=== PATIENT | male | born 1980 | race Caucasian/White ===

== ENCOUNTER 2016-09-19 05:07 | Emergency (ER) | payer MEDICAID ==
[~2016-09-19] VITALS: Ht 157.5 cm; Wt 74.5 kg
[2016-09-19 05:17] VITALS: Ht 157.5 cm; Wt 74.5 kg
[2016-09-19] MEDS ORDERED: ONDANSETRON (ODT) 4 MG TAB ODT STA (06:01)
--- NOTE | 2016-09-19 06:09 | ERD ---
ER Documentation Chief Complaint Date/Time DATE: 09/19/16 TIME: 06:07 Chief Complaint AP and Bilateral flank pain started at 1800 yesterday. denies pain in urine HPI This is a 36-year-old male who presents to the emergency department today complaining of abdominal pain that started last night. States the pain goes around to his back.. Patient states he has had some vomiting as well as some diarrhea. States he took Motrin for the pain. Denies any dysuria.Denies any fevers or chills. ROS All systems reviewed and are negative except as per history of present illness. Medications Home Meds Active Scripts Loperamide Hcl* (Imodium*) 2 Mg Capsule, 2 MG PO .AFTER EA LOOSE BM Y for DIARRHEA, #10 TAB Prov:GURINDER TRIMBLE PA-C 09/19/16 Hydrocodone/Acetaminophen ([place] 5-325 Tablet) 1 Each Tablet, 1 TAB PO Q6H Y for PAIN, #10 TAB Prov:GURINDER TRIMBLE PA-C 09/19/16 Famotidine* (Pepcid*) 20 Mg Tablet, 20 MG PO BID for 14 Days, TAB Prov:GURINDER TRIMBLE PA-C 09/19/16 Ondansetron Hcl* (Zofran*) 4 Mg Tablet, 4 MG PO Q6H for NAUSEA AND/OR VOMITING, #30 TAB Prov:GURINDER TRIMBLE PA-C 09/19/16 Allergies Allergies: Coded Allergies: No Known Allergy (Unverified , 09/19/16) PMhx/Soc Medical and Surgical Hx: pt denies Medical Hx, pt denies Surgical Hx Hx Psychiatric Problems: No Hx Miscellaneous Medical Probl: No Hx Alcohol Use: No Hx Substance Use: No Hx Tobacco Use: No Smoking Status: Never smoker Physical Exam Vitals Vital Signs Date Time Temp Pulse Resp B/P Pulse Ox O2 Delivery O2 Flow Rate FiO2 09/19/16 05:17 98.1 82 20 131/84 97 Physical Exam Const: NAD Head: Atraumatic Eyes: Normal Conjunctiva ENT: Normal External Ears, Nose and Mouth. Neck: Full range of motion..~ No meningismus. Resp: Clear to auscultation bilaterally Cardio: Regular rate and rhythm, no murmurs Abd: Soft, epigastric and right upper quadrant tenderness non distended. Normal bowel sounds. No right lower quadrant pain. No left lower quadrant pain. No tenderness McBurney's. Skin: No petechiae or rashes Back: No midline or flank tenderness no CVA tenderness Ext: No cyanosis, or edema Neur: Awake and alert Psych: Normal Mood and Affect Result Diagram: 09/19/16 0610 09/19/16 0610 Results 24 hrs Laboratory Tests Test 09/19/16 06:10 White Blood Count 10.310^3/ul Red Blood Count 5.7210^6/ul Hemoglobin 17.2g/dl Hematocrit 50.3% Mean Corpuscular Volume 87.9fl Mean Corpuscular Hemoglobin 30.1pg Mean Corpuscular Hemoglobin Concent 34.2g/dl Red Cell Distribution Width 13.3% Platelet Count 51401^3/UL Mean Platelet Volume 9.4fl Neutrophils % 79.2% Lymphocytes % 11.4% Monocytes % 5.2% Eosinophils % 3.8% Basophils % 0.1% Nucleated Red Blood Cells % 0.0/100WBC Neutrophils # 8.210^3/ul Lymphocytes # 1.210^3/ul Monocytes # 0.510^3/ul Eosinophils # 0.410^3/ul Basophils # 0.010^3/ul Nucleated Red Blood Cells # 0.010^3/ul Urine Color YELLOW Urine Clarity HAZY Urine pH 6.0 Urine Specific Mallory >=1.030 Urine Ketones NEGATIVE Urine Nitrite NEGATIVE Urine Bilirubin NEGATIVE Urine Urobilinogen 0.2 E.U./dL Urine Leukocyte Esterase NEGATIVE Urine Microscopic RBC 0-2/HPF Urine Microscopic WBC 0-2/HPF Urine Epithelial Cells FEW Urine Amorphous Urates FEW Urine Bacteria FEW Urine Mucus MODERATE Urine Hemoglobin TRACE Urine Glucose NEGATIVE% Urine Total Protein TRACE Sodium Level 137mmol/L Potassium Level 4.1mmol/L Chloride Level 103mmol/L Carbon Dioxide Level 24mmol/L Anion Gap 14 Blood Urea Nitrogen 14mg/dl Creatinine 0.84mg/dl Glucose Level 116mg/dl Calcium Level 8.9mg/dl Total Bilirubin 0.8mg/dl Direct Bilirubin 0.00mg/dl Indirect Bilirubin 0.8mg/dl Aspartate Amino Transf (AST/SGOT) 41IU/L Alanine Aminotransferase (ALT/SGPT) 63IU/L Alkaline Phosphatase 84IU/L Total Protein 8.7g/dl Albumin 4.6g/dl Globulin 4.10g/dl Albumin/Globulin Ratio 1.12 Lipase 37U/L Current Medications Medications (Trade) Dose Ordered Sig/Jose Route PRN Reason Start Time Stop Time Status Last Admin Dose Admin Acetaminophen/ Hydrocodone Bitart ([place] (5/325)) 1 tab ONCE ONCE PO 09/19/16 06:30 09/19/16 06:31 DC 09/19/16 06:12 Ondansetron HCl (Zofran Odt) 4 mg ONCE STAT ODT 09/19/16 06:01 09/19/16 06:05 DC 09/19/16 06:12 Famotidine (Pepcid) 20 mg ONCE ONCE PO 09/19/16 06:30 09/19/16 06:31 DC 09/19/16 06:12 DIAGNOSTIC IMAGING REPORT Patient: DMITRIY LO : 1980 Age: 36 Sex: M MR #: [id number] DOS: 09/19/16 0601 Ordering MD: GURINDER TRIMBLE PA-C Location: [facility] [place] Room/Bed: PROCEDURE: ULTRASOUND LIMITED ABDOMEN CLINICAL INDICATION: 36-year-old male with abdominal pain. TECHNIQUE: Multiple sonographic of the right upper quadrant of the abdomen were obtained. The images were reviewed on a PACS workstation. COMPARISON: None. FINDINGS: The pancreas is partially visualized and is otherwise without abnormal echogenicity. The liver displays normal echogenicity. The liver measures 15.1 cm in length. No evidence of intrahepatic biliary ductal dilatation is seen. The portal and hepatic veins are unremarkable. The gallbladder demonstrates no wall thickening, sludge, nor stones. No pericholecystic fluid is seen. The common bile duct measures 6.0 mm and is mildly prominent. The right kidney displays normal echogenicity. The right kidney measures 10.4 cm. No caliectasis or hydronephrosis is seen. No free fluid is seen. IMPRESSION: Mildly prominent common bile duct otherwise unremarkable right upper quadrant abdominal ultrasound. .Nacho Pardo MD, MD Date Time Electronically viewed and signed by .Nacho Pardo MD, on 09/19/2016 06:58 .M/ CC: GURINDER TRIMBLE PA-C Procedures/[facility] This a 36-year-old male who presents to the emergency department today complaining of abdominal pain that started last night. Patient indicated the abdominal pain radiates around to his back and on physical exam he had epigastric and right upper quadrant tenderness. I did obtain laboratory work as well as an ultrasound Laboratory work shows no elevated white blood cell count he is not anemic. Platelets are within normal limits. Electrolytes are within normal limits. Glucose is within normal limits. Liver functions within normal limits. Lipase is within normal limits. UA is negative for infection. Ultrasound shows a mildly prominent common bile duct otherwise unremarkable right upper quadrant abdominal ultrasound. Gallbladder demonstrates no wall thickening, sludge or stones. There is no pericholecystic fluid seen. There is no free fluid. She has epigastric pain of uncertain etiology however may be related to gastritis versus GERD versus viral illness given the patient's vomiting and diarrhea. Patient has no lower abdominal pain of low suspicion for appendicitis , diverticulitis or acute surgical abdomen Patient was given [place], Zofran and Pepcid here in the emergency department and symptoms improved. Patient was given a perception for [place], Zofran, Pepcid and Imodium At this time the patient is stable for discharge and outpatient management. Patient should follow up with their PCP in the next 1-2 days. They may return to the emergency department sooner for any persistent or worsening of symptoms. Patient understood and agreed with the plan. Departure Diagnosis: Primary Impression: Abdominal pain Abdominal location: epigastric Qualified Code: R10.13 - Epigastric pain Condition: Fair GURINDER TRIMBLE PA-C Sep 19, 2016 06:09
[2016-09-19] MEDS ORDERED: FAMOTIDINE 20 MG TAB PO ONE (06:30)
[2016-09-19] MEDS ORDERED: HYDROCODONE/APAP (5/325) TAB PO ONE (06:30)
[2016-09-19 06:31] LABS: ADD SCAN DIFF NO
[2016-09-19 06:39] LABS: BASOPHILS % 0.1 % (0.0-2.0); EOSINOPHILS # 0.4 10^3/ul (0.0-0.5); EOSINOPHILS % 3.8 % (0.0-7.0); HEMATOCRIT 50.3 % (42.0-52.0); HEMOGLOBIN 17.2 g/dl (14.0-18.0); LYMPHOCYTES # 1.2 10^3/ul (0.8-2.9); LYMPHOCYTES % 11.4 % (15.0-51.0); MEAN CORPUSCULAR HEMOGLOBIN 30.1 pg (29.0-33.0); MEAN CORPUSCULAR HGB CONC 34.2 g/dl (32.0-37.0); MEAN CORPUSCULAR VOLUME 87.9 fl (82.0-101.0); MEAN PLATELET VOLUME 9.4 fl (7.4-10.4); MONOCYTE # 0.5 10^3/ul (0.3-0.9); MONOCYTES % 5.2 % (0.0-11.0); NEUTROPHIL # 8.2 10^3/ul (1.6-7.5); NEUTROPHILS % 79.2 % (39.0-77.0); PLATELET COUNT 292 10^3/UL (140-415); RED BLOOD COUNT 5.72 10^6/ul (4.70-6.10); RED CELL DISTRIBUTION WIDTH 13.3 % (11.5-14.5); WHITE BLOOD COUNT 10.3 10^3/ul (4.8-10.8)
[2016-09-19 06:50] LABS: ADD UMIC YES; URINE BILIRUBIN (Dip) NEGATIVE (NEGATIVE); URINE BLOOD (Dip) TRACE (NEGATIVE); URINE COLOR YELLOW (YELLOW); URINE GLUCOSE (Dip) NEGATIVE (NEGATIVE); URINE KETONES (Dip) NEGATIVE (NEGATIVE); URINE LEUKOCYTE ESTERASE (Dip) NEGATIVE (NEGATIVE); URINE NITRITE (Dip) NEGATIVE (NEGATIVE); URINE TOTAL PROTEIN (Dip) TRACE (NEGATIVE); URINE UROBILINOGEN (Dip) 0.2 E.U./dL (0.1-1.0)
[2016-09-19 06:52] LABS: ALBUMIN 4.6 g/dl (3.3-4.9); ALBUMIN/GLOBULIN RATIO 1.12; BILIRUBIN,INDIRECT 0.8 mg/dl (0-1.1); BILIRUBIN,TOTAL 0.8 mg/dl (0.2-1.3); CALCIUM 8.9 mg/dl (8.4-10.2); CREATININE 0.84 mg/dl (0.61-1.24); POTASSIUM 4.1 mmol/L (3.5-5.1); TOTAL PROTEIN 8.7 g/dl (6.1-8.1)
--- NOTE | 2016-09-19 06:59 | RADRPT ---
PROCEDURE: ULTRASOUND LIMITED ABDOMEN CLINICAL INDICATION: 36-year-old male with abdominal pain. TECHNIQUE: Multiple sonographic of the right upper quadrant of the abdomen were obtained. The imag es were reviewed on a PACS workstation. COMPARISON: None. FINDINGS: The pancreas is partially visualized and is otherwise without abnormal echogenicity. The liver displays normal echogenicity. The liver measures 15.1 cm in length. No evidence of intrah epatic biliary ductal dilatation is seen. The portal and hepatic veins are unremarkable. The gallbladder demonstrates no wall thickening, sludge, nor stones. No pericholecystic fluid is see n. The common bile duct measures 6.0 mm and is mildly prominent. The right kidney displays normal echogenicity. The right kidney measures 10.4 cm. No caliectasis or hydronephrosis is seen. No free fluid is seen. IMPRESSION: Mildly prominent common bile duct otherwise unremarkable right upper quadrant abdominal ultrasound. .Nacho Pardo MD, MD Date Time Electronically viewed and signed by .Nacho Pardo MD, on 09/19/2016 06:58 .James/
[2016-09-19 07:33] LABS: BACTERIA,URINE FEW; MUCUS,URINE MODERATE; URINE RBCS 0-2 /HPF (0)
[2016-09-19] MEDS ORDERED: FAMO-18 PO (08:08)
[2016-09-19] MEDS ORDERED: HYDR-906 PO (08:08)
[2016-09-19] MEDS ORDERED: ONDA4TAB8 PO (08:08)
[2016-09-19] MEDS ORDERED: LOPE2CAP PO (08:09)
== END 2016-09-19 08:44 | disposition home or self-care (01) ==
LOC: FTE 05:07
DX: R10.13 Epigastric pain (principal); R11.10 Vomiting, unspecified
CPT/HCPCS: 36415; 76705; 80053; 81001; 81003; 83690; 85025; Z7502; Z7610